=== PATIENT | male | born 1965 ===

== ENCOUNTER → 2017-11-05 | Emergency (ER) | payer SELFPAY ==
[~2017-11-05] MED LIST: ALTEPLASE RECOMB 100 MG ONE; ALTEPLASE RECOMB 100 MG/100 ML VIAL IV ONE; AMIODARONE(*) 150 MG/3 ML INJ 150 MG in DEXTROSE 5%(*) 100 ML BAG 100 ML IVPB ONE; ASPIRIN 81 MG CHEW CHEW STA; EPINEPHrine INJ 1 MG/10 ML SYR ONE; NS(*) 0.9% 1000 ML BAG 1,000 ML IV ONE; ONDANSETRON 4 MG/2 ML VIAL IVP PRN; ONDANSETRON 4 MG/2 ML VIAL ONE
--- NOTE | 2017-11-05 13:05 | ER Report ---
History and Physical Time Seen By MD: 13:04 HPI/ROS This is a 52-year-old male who drove himself to the emergency department complaining of severe shortness of breath. History is obtained from his brother and other family members. Per his brother he has had worsening shortness of breath for 3 days. He was driving to [employer] from [employer]. He called his brother when he is in [place] and told him that he couldn't breathe. His brother told me that he does not see a doctor regularly. He does not smoke cigarettes, but he never checked for himself for high blood pressure, diabetes, or high cholesterol all which one in the family. One of our ED techs went to help the patient get out of his car upon arrival. At that point she noted that he was having trouble breathing, and quickly brought him into the emergency department. He was able to confirm that he is experiencing worsening shortness of breath past 3 days. He was quickly placed into a room in the emergency department. Immediately after being placed on the monitor and in the room, he stepped breathing and lost his pulse. CPR was immediately initiated. Remainder of the 14 system rev: Yes Unable To Obtain Past Medical: Unable to Obtain/Update Reviewed Nurses Notes: Yes Old Medical Records Reviewed: No Hx Smoking: No Smoking Status: Smoker: Status Unknown Exposure to Second Hand Smoke?: Yes Hx Substance Use Disorder: No Hx Alcohol Use: No Constitutional Vital Sign - Last 24 Hours 11/05/17 11/05/17 11/05/17 11/05/17 13:21 13:24 13:26 13:31 Pulse ??? B/P (MAP) 74/50 (58) 166/66 (99) 107/31 (56) FiO2 100.0 11/05/17 11/05/17 11/05/17 11/05/17 13:32 13:36 13:38 13:41 Pulse 102 88 Resp 23 B/P (MAP) 177/--- (81) 174/129 (144) Pulse Ox 69 88 11/05/17 11/05/17 11/05/17 11/05/17 13:44 13:46 13:50 13:51 Pulse 107 120 Resp 23 27 B/P (MAP) 181/106 (131) ???/??? (1665) 143/92 (109) Pulse Ox 92 58 11/05/17 11/05/17 11/05/17 11/05/17 13:54 13:56 14:01 14:03 Pulse ??? 104 Resp 102 26 B/P (MAP) 153/31 (71) 122/47 (72) Pulse Ox 71 71 11/05/17 11/05/17 11/05/17 11/05/17 14:05 14:06 14:07 14:11 Pulse 122 100 Resp 101 0 B/P (MAP) 100/41 (60) 81/29 (46) Pulse Ox 79 76 11/05/17 11/05/17 11/05/17 11/05/17 14:12 14:14 14:16 14:18 Pulse 95 Resp 30 B/P (MAP) 178/68 (104) 140/104 (116) 142/121 (128) 145/45 (78) Pulse Ox 66 11/05/17 11/05/17 11/05/17 11/05/17 14:21 14:23 14:26 14:31 Pulse 102 101 91 Resp 39 102 27 B/P (MAP) 138/54 (82) Pulse Ox 83 88 59 Intake and Output 11/05/17 11/05/17 11/06/17 14:59 22:59 06:59 Intake Total 1105 ml 6 ml Balance 1105 ml 6 ml Physical Exam General Appearance: The patient i not breathing, and CPR is in progress Eyes: Pupils equal and round no pallor or injection. ENT, Mouth: Mucous membranes are dry Respiratory: There are b/l breath sounds with bag/valve/mask Cardiovascular: There is no pulse or heart beat Gastrointestinal: Abdomen is soft and non tender, no masses, Neurological: GCS of 3 Skin: Warm and dry, no rashes. Extremities are nonswollen DIFFERENTIAL DIAGNOSIS: After history and physical exam differential diagnosis was considered for shortness of breath including but not limited to pulmonary infectious process, COPD, asthma, pulmonary embolus and congestive heart failure , GA Medical Decision Making Data Points Result Diagram: 11/05/17 1320 11/05/17 1320 Laboratory Hematology Test 11/05/17 13:20 11/05/17 13:55 Red Blood Count 5.14 M/uL (4.00-5.60) Mean Corpuscular Volume 67.9 fL (80.0-96.0) Mean Corpuscular Hemoglobin 19.1 pg (26.0-33.0) Mean Corpuscular Hemoglobin Concent 28.2 g/dL (32.0-36.0) Red Cell Distribution Width 22.9 % (11.5-14.5) Mean Platelet Volume 9.6 fL (7.2-11.1) Neutrophils (%) (Auto) 68.8 % (39.4-72.5) Lymphocytes (%) (Auto) 19.9 % (17.6-49.6) Monocytes (%) (Auto) 10.3 % (4.1-12.4) Eosinophils (%) (Auto) 0.2 % (0.4-6.7) Basophils (%) (Auto) 0.8 % (0.3-1.4) Nucleated RBC Relative Count (auto) 1.1 /100WBC Neutrophils # (Auto) 10.4 K/uL (2.0-7.4) Lymphocytes # (Auto) 3.0 K/uL (1.3-3.6) Monocytes # (Auto) 1.6 K/uL (0.3-1.0) Eosinophils # (Auto) 0.0 K/uL (0.0-0.5) Basophils # (Auto) 0.1 K/uL (0.0-0.1) Nucleated RBC Absolute Count (auto) 0.17 K/uL Peripheral Blood Smear Yes Y/N Prothrombin Time 16.6 seconds (12.0-14.4) Prothromb Time International Ratio 1.33 Activated Partial Thromboplast Time 28 seconds (23-35) D-Dimer Quantitative (PE/DVT) 2.60 ug/ml (0-0.50) Sodium Level 139 mmol/L (137-145) Potassium Level 3.0 mmol/L (3.5-5.0) Chloride Level 102 mmol/L (98-107) Carbon Dioxide Level 15 mmol/L (22-30) Blood Urea Nitrogen 29 mg/dl (9-21) Creatinine 1.50 mg/dl (0.66-1.25) Glomerular Filtration Rate Calc 49.5 Random Glucose 271 mg/dl (75-110) Lactate 10.6 mmol/L (0.7-2.1) Calcium Level 8.1 mg/dl (8.4-10.2) Total Bilirubin 2.4 mg/dl (0.2-1.3) Aspartate Amino Transf (AST/SGOT) 157 U/L (0-35) Alanine Aminotransferase (ALT/SGPT) 190 U/L (0-56) Alkaline Phosphatase 152 U/L (0-126) Troponin I 0.051 ng/ml Total Protein 7.3 g/dl (6.3-8.2) Albumin 4.0 g/dl (3.5-5.0) Blood Gas Puncture Site Femoral Blood Gas Patient Temperature Unknown DEGREES Arterial Blood pH 6.95 (7.35-7.45) Arterial Blood Partial Pressure CO2 53 mmHg (32-37) Arterial Blood Partial Pressure O2 < 35 mmHg (60-80) Arterial Blood HCO3 12 mmol/L (20-26) Arterial Blood Oxygen Saturation 18 % (92-100) Arterial Blood Base Excess -21.0 mmol/L Avila Test Nt avail Oxygen Liters/Minute Bagged/code Chemistry Test 11/05/17 13:20 11/05/17 13:55 White Blood Count 15.1 k/uL (4.5-11.0) Red Blood Count 5.14 M/uL (4.00-5.60) Hemoglobin 9.8 g/dL (14.0-18.0) Hematocrit 34.9 % (42.0-52.0) Mean Corpuscular Volume 67.9 fL (80.0-96.0) Mean Corpuscular Hemoglobin 19.1 pg (26.0-33.0) Mean Corpuscular Hemoglobin Concent 28.2 g/dL (32.0-36.0) Red Cell Distribution Width 22.9 % (11.5-14.5) Platelet Count 250 K/uL (150-450) Mean Platelet Volume 9.6 fL (7.2-11.1) Neutrophils (%) (Auto) 68.8 % (39.4-72.5) Lymphocytes (%) (Auto) 19.9 % (17.6-49.6) Monocytes (%) (Auto) 10.3 % (4.1-12.4) Eosinophils (%) (Auto) 0.2 % (0.4-6.7) Basophils (%) (Auto) 0.8 % (0.3-1.4) Nucleated RBC Relative Count (auto) 1.1 /100WBC Neutrophils # (Auto) 10.4 K/uL (2.0-7.4) Lymphocytes # (Auto) 3.0 K/uL (1.3-3.6) Monocytes # (Auto) 1.6 K/uL (0.3-1.0) Eosinophils # (Auto) 0.0 K/uL (0.0-0.5) Basophils # (Auto) 0.1 K/uL (0.0-0.1) Nucleated RBC Absolute Count (auto) 0.17 K/uL Peripheral Blood Smear Yes Y/N Prothrombin Time 16.6 seconds (12.0-14.4) Prothromb Time International Ratio 1.33 Activated Partial Thromboplast Time 28 seconds (23-35) D-Dimer Quantitative (PE/DVT) 2.60 ug/ml (0-0.50) Glomerular Filtration Rate Calc 49.5 Lactate 10.6 mmol/L (0.7-2.1) Calcium Level 8.1 mg/dl (8.4-10.2) Total Bilirubin 2.4 mg/dl (0.2-1.3) Aspartate Amino Transf (AST/SGOT) 157 U/L (0-35) Alanine Aminotransferase (ALT/SGPT) 190 U/L (0-56) Alkaline Phosphatase 152 U/L (0-126) Troponin I 0.051 ng/ml Total Protein 7.3 g/dl (6.3-8.2) Albumin 4.0 g/dl (3.5-5.0) Blood Gas Puncture Site Femoral Blood Gas Patient Temperature Unknown DEGREES Arterial Blood pH 6.95 (7.35-7.45) Arterial Blood Partial Pressure CO2 53 mmHg (32-37) Arterial Blood Partial Pressure O2 < 35 mmHg (60-80) Arterial Blood HCO3 12 mmol/L (20-26) Arterial Blood Oxygen Saturation 18 % (92-100) Arterial Blood Base Excess -21.0 mmol/L Avila Test Nt avail Oxygen Liters/Minute Bagged/code Coagulation Test 11/05/17 13:20 Prothrombin Time 16.6 seconds Prothromb Time International Ratio 1.33 Activated Partial Thromboplast Time 28 seconds D-Dimer Quantitative (PE/DVT) 2.60 ug/ml EKG/Imaging EKG Interpretation 12 lead EKG: Rhythm: sinus tachycardia [place]: left QRS: normal ST segments: non specific t wave flattening Imaging X-ray: cxr was obtained. I viewed the images myself on the PACS system. My interpretation of the images is: ET tube/right subclavian in place. No PTX. The radiologist interpretation had no clinically significant variation from this interpretation. ED Course/Re-evaluation Clinical Indication for ER IV: IV Access ED Course 52-year-old male who drove himself to the emergency department and was able to tell the security installation sales technician that he had shortness of breath for 3 days which was worsening. He also told his brother upon arrival to [place] that "I cannot breathe." His brother had encouraged him to assembler for puller over hand and call 911. Immediately after arriving in the emergency department he went into respiratory distress and did not have a pulse. CPR and ultimately ACLS protocols were followed. He did have ROSC multiple times during the code, but ultimately he continued to become more hypoxic and bradycardic even while being ventilated ET tube. He was given multiple doses of epinephrine, amiodarone, and other ACLS meds. He never had shockable rhythm. He was intubated and central line was placed for access for drips. His brother was in the ED during the entire turn of events. I spoke with the family intermittently about the severity of the patient's illness. After considering multiple differential diagnosis, I spoke with the family about the fact that he may have a PE. I had a discussion with the family about the use of thrombolytics in the setting of a codeine patient. I told him that the risks were high and that the thrombolytics would likely not help him, but at that point it was likely the only chance that he would have. The family agreed to the thrombolytics and the TPA was given. We continued CPR while the TPA was being given. In spite of the TPA he continued to be hypoxic even on the ventilator and ultimately more more bradycardic. I made the decision to call the code at approximately 1445. I think the likely cause of is either GA or PE. Family was at the bedside. Procedure Procedure: Rapid sequence intubation. Indication for the procedure was respiratory failure. The patient was preoxygenated with 100% oxygen by face mask. The patient was given the following IV medications: Etomidate and succinylcholine. The patient was orally endotracheally intubated under direct visualization with a 8.0 ETT. In line stabilization was performed during the procedure. Tracheal intubation was confirmed with misting on the tube; breath sounds were auscultated equally bilaterally; appropriate color change with [place] CO2 detector. Chest X-ray shows ETT in good position. The procedure was performed by myself. Procedure: Central line placement. Given this was an emergenct situation, no consent was obtained and sterile field was minimal. The right subclavian vein was punctured with a 19 gauge finder needle, then a wire introducer was placed, a 7 [place] triple lumen was placed using Seldinger technique. There were no complications. Blood return low pressure, dark blood. Patient tolerated procedure well. CXR results: Appropriate line placement, and no pneumothorax. Xray was interpreted by myself. Radiologist interpretation is pending. The procedure was performed by myself. Decision to Disposition Date: Nov 05, 2017 Decision to Disposition Time: 14:45 Critical Care Time I spent a total of 60 minutes of critical care time in obtaining history, performing a physical exam, bedside monitoring of interventions, collecting and interpreting tests and discussion with consultants but not including time spent performing procedures. Depart Departure Latest Vital Signs Vital Signs Date Time Temp Pulse Resp B/P (MAP) Pulse Ox O2 Delivery O2 Flow Rate FiO2 11/05/17 14:31 91 27 59 11/05/17 14:23 138/54 (82) 11/05/17 13:31 100.0 Impression: Primary Impression: Unsuccessful cardiopulmonary resuscitation Condition: JENISE JOHNSON MD Nov 05, 2017 13:05
[2017-11-05 13:35] LABS: PLATELET COUNT, AUTOMATED 250 K/uL (150-450)
[2017-11-05 14:05] LABS: INR 1.33
[2017-11-05 14:23] VITALS: BP 138/54
--- NOTE | 2017-11-05 14:41 | EKG ---
FACILITY: [facility] - [place] PATIENT NAME: ZACHARY DE : [id number] MR: [id number] V: [id number] EXAM DATE: ORDERING PHYSICIAN: TATIANA HAWK TECHNOLOGIST: CORNEL Pruitt Reason : CODE BLUE Blood Pressure : / mmHG Vent. Rate : 134 BPM Atrial Rate : 134 BPM P-R Int : 140 ms QRS Dur : 090 ms QT Int : 346 ms P-R-T Axes : 057 -41 059 degrees QTc Int : 516 ms Sinus tachycardia with fusion complexes Left axis deviation Nonspecific ST and T wave abnormality QTc prolonged No previous ECGs available Confirmed by MADDIE BLACKWOOD ([id number]) on 11/06/2017 6:41:10 AM Referred By: ELIZABETH Confirmed By:MADDIE BLACKWOOD
--- NOTE | 2017-11-05 14:42 | RADIOLOGY IMAGING REPORT ---
FACILITY: [facility] - [place] PATIENT NAME: Kelvin Vasquez : 1965 MR: [id number] V: [id number] EXAM DATE: ORDERING PHYSICIAN: TATIANA HAWK TECHNOLOGIST: Location: [facility] Patient: Kelvin Vasquez : 1965 Visit/Account:[id number] Date of Sevice: 11/05/2017 CHEST SINGLE AP History: code blue FINDINGS: Comparison studies: None. Tubes and Lines: There is an automatic CPR machine in place obscuring the lower half of the lung fie lds. The tato is obscured but the endotracheal tube appears well-positioned 2-3 cm above the camila a. There is a right subclavian central line in place with tip projecting over the cavoatrial junctio n. Lungs and pleura: Lung parenchyma appears well-aerated. No evidence of pneumothorax. Mediastinum: normal. Cardiac silhouette: Cardiac silhouette obscured by overlying hardware Osseous structures: Unremarkable for age . IMPRESSION: Support tubes and lines appear well-positioned. No pulmonary pathology and the visualized portions of the lungs. Report Dictated By: Jason Guaman MD at 11/05/2017 2:32 PM Report E-Signed By: Jason Guaman MD at 11/05/2017 2:38 PM WSN:[email or web address]
[2017-11-05] MEDS: EPINEPHrine INJ 1 MG/10 ML SYR 1 MG in NS(*) 0.9% 250 ML BAG 240 ML IV SCH ×2 (17:07→17:09)
== END ==
LOC: ER 13:22
DX: I46.9 Cardiac arrest, cause unspecified (principal)
CPT/HCPCS: 31500; 36556; 71045; 82803; 83605; 84484; 85025; 85379; 85610; 85730; 92950; 93005; 94002; 94770; 99291; C1758; J0171; J0282; J2997; J7050; J7060; 36416; 82040; 82247; 82310; 82374; 82435; 82565; 82947; 82948; 84075; 84132; 84155; 84295; 84450; 84460; 84520; J0330; J2250; J3490